=== PATIENT | male | born 1985 | race Caucasian/White ===

== ENCOUNTER → 2016-07-21 | Outpatient (REF) | LOC: WSOH 13:15 | DX: Z02.89 Encounter for other administrative examinations (principal) ==

== ENCOUNTER → 2016-07-21 | Outpatient (REF) | LOC: WSOH 15:15 | DX: Z02.89 Encounter for other administrative examinations (principal) ==

== ENCOUNTER 2018-02-01 20:52 | Emergency (ER) | payer OTHER ==
[~2018-02-01] VITALS: Ht 175.3 cm; Wt 75.0 kg
[2018-02-01 20:57] VITALS: BP 138/72; PULSE 98; TEMP 97.4
[2018-02-01] MEDS ORDERED: BACTRIM DS 8001 TAB PO (21:33)
[2018-02-01] MEDS ORDERED: DEPAKOTE 125MG125 M1 PO (22:09)
== END 2018-02-01 22:12 | disposition home or self-care (01) ==
LOC: COL.ER 20:52
DX: L02.31 Cutaneous abscess of buttock (principal)